=== PATIENT | female | born 1985 | race African-American/Black ===

== ENCOUNTER 2021-03-26 18:40 | Inpatient (IN) | payer OTHER ==
[2021-03-26] MEDS ORDERED: ELECTROLYTE-148 SOLN 500 ML IV ONE (19:33)
[2021-03-26] MEDS ORDERED: CITRIC ACID/SODIUM CITRATE 30 ML UNIT-DOSE CUP PO ONE (19:33)
[2021-03-26] MEDS ORDERED: ELECTROLYTE-148 SOLN 1,000 ML IV SCH (19:45)
[2021-03-26 20:24] LABS: BASO % 0.8 % (0-2.0); EOS % 2.8 % (0-4.5); HEMOGLOBIN 11.3 GM/dL (10.7-15.3); LYMPH % 19.3 % (8-40); MCH 29.6 pg (25.7-33.7); MCHC 34.3 g/dl (32.0-36.0); MEAN CELL VOLUME 86.2 fl (80-96); MEAN PLT VOLUME 9.6 fl (7.5-11.1); MONO % 6.3 % (3.8-10.2); NEUT % 70.8 % (42.8-82.8); PLATELET COUNT 123 10^3/uL (134-434); RBC 3.82 M/mm3 (3.60-5.2); RDW 13.7 % (11.6-15.6); WHITE BLOOD COUNT 8.3 K/mm3 (4.0-10.0)
[2021-03-26 20:32] LABS: INR 0.92 (0.83-1.09); PROTHROMBIN TIME (PATIENT) 11.3 SEC (9.7-13.0)
[2021-03-26 20:35] LABS: ACTIVATED PTT 25.4 SECONDS (25.2-36.5)
[2021-03-26 20:41] VITALS: BMI 28.0
[2021-03-26] MEDS ORDERED: IBUPROFEN 800 MG/8 ML IJ IVPB PRN (20:42)
[2021-03-26] MEDS ORDERED: BENZOCAINE 28 GM HEMORRHOIDAL OINTMENT PR PRN (20:42)
[2021-03-26] MEDS ORDERED: diphenhydrAMINE HCL 25 MG CAPSULE (FP) PO PRN (20:42)
[2021-03-26] MEDS ORDERED: BENZOCAINE 20% 57 GM BOTTLE TP PRN (20:42)
[2021-03-26] MEDS ORDERED: WITCH HAZEL 50% (TUCKS) 40 PAD/JAR PAD TP PRN (20:42)
[2021-03-26] MEDS ORDERED: METHYLERGONOVINE MALEATE 0.2 MG/1 ML AMP IM PRN (20:42)
[2021-03-26] MEDS ORDERED: OXYTOCIN 20 UNITS in 0.9% NS 20 UNIT/1,000 ML INFUS.BAG IV SCH (20:45)
[2021-03-26 20:49] LABS: BLOOD UREA NITROGEN 10.3 mg/dL (7-18)
[2021-03-26 20:52] LABS: CREATININE 0.6 mg/dL (0.55-1.3)
[2021-03-26] MEDS ORDERED: ceFAZolin 2 GRAM PREMIX BAG IVPB ONE (20:53)
[2021-03-26] MEDS ORDERED: morphine SULFATE/PF 0.5 MG/ML (2cc Syringe - QUVA) ONE ×2 (21:07)
[2021-03-26] MEDS ORDERED: ePHEDrine SULFATE 50 MG/1 ML AMPULE ONE (21:39)
[2021-03-26 21:43] LABS: HIV INTERPRETATION NEGATIVE (NEGATIVE)
[2021-03-26] MEDS ORDERED: IBUPROFEN 800 MG/8 ML IJ IVPB ONE (22:39)
[2021-03-26] MEDS ORDERED: ACETAMINOPHEN 1000 MG/100 ML VIAL (NON FORMULARY) IVPB PRN (22:53)
[2021-03-26] MEDS ORDERED: ACETAMINOPHEN INJECTION 100 ML IVPB ONE (22:56)
[2021-03-26] MEDS ORDERED: OXYTOCIN 20 UNITS in 0.9% NS 20 UNIT/1,000 ML INFUS.BAG IV ONE (22:57)
[2021-03-27 01:01] LABS: CORD BASE EXCESS -5.3 mmol/L (0-2); CORD HCO3 19.8 mmHg (20-29); CORD PCO2 37.9 mmHg (30-78); CORD pH 7.336 (7.14-7.44)
[2021-03-27] MEDS: SIMETHICONE 80 MG TAB.CHEW (FP) PO PRN ×3 (01:28→19:50)
[2021-03-27 08:37] LABS: HEMATOCRIT 30.7 % (32.4-45.2); HEMOGLOBIN 10.4 GM/dL (10.7-15.3); MCH 29.8 pg (25.7-33.7); MEAN CELL VOLUME 87.6 fl (80-96); MEAN PLT VOLUME 9.8 fl (7.5-11.1); PLATELET COUNT 96 10^3/uL (134-434); RBC 3.51 M/mm3 (3.60-5.2); WHITE BLOOD COUNT 7.5 K/mm3 (4.0-10.0)
[2021-03-27] MEDS: IBUPROFEN 600 MG TABLET (FP) PO PRN ×2 (13:20→19:50)
[2021-03-27] MEDS: ACETAMINOPHEN 325 MG TABLET (FP) PO PRN ×2 (13:20→19:52)
[2021-03-27] MEDS ORDERED: BISACODYL 10 MG SUPP.RECT PR PRN (20:42)
[2021-03-27] MEDS ORDERED: HYDROmorphone HCL 2 MG TABLET PO PRN (20:42)
[2021-03-27] MEDS ORDERED: oxyCODONE HCL 5 MG TABLET PO PRN ×2 (20:42)
[2021-03-28] MEDS: ACETAMINOPHEN 325 MG TABLET (FP) PO PRN ×2 (06:50→10:43)
[2021-03-28] MEDS: IBUPROFEN 600 MG TABLET (FP) PO PRN ×2 (06:50→10:42)
[2021-03-28] MEDS: SIMETHICONE 80 MG TAB.CHEW (FP) PO PRN (10:43)
[2021-03-28 11:15] VITALS: BP 114/61; PULSE 61; TEMP 97.9
[2021-03-28] MEDS ORDERED: SENNOSIDES/DOCUSATE COMBO (SENNA PLUS) TABLET (UD) PO PRN (22:00)
== END 2021-03-28 13:05 | disposition home or self-care (01) | DRG 540 ==
LOC: JLDR 18:40 → J3W 03-27
PROVIDERS: ADMIT Obstetrics & Gynecology; ATTEND Obstetrics & Gynecology
PROC: 10D00Z1 Extraction of Products of Conception, Low, Open Approach (ICD-10-PCS; principal; 2021-03-26)
DX: O76 Abnormality in fetal heart rate and rhythm complicating labor and delivery (principal); O48.0 Post-term pregnancy; Z3A.41 41 weeks gestation of pregnancy; O69.81X0 Labor and delivery complicated by cord around neck, without compression, not applicable or unspecified; Z37.0 Single live birth
CPT/HCPCS: 36415; 36600; 80048; 82803; 85025; 85027; 85610; 85730; 86780; 86850; 86900; 86901; 87389; 88307-TC; J0131